=== PATIENT | female | born 1955 | race Two or more races ===

== ENCOUNTER 2020-05-05 16:32 | Inpatient (IN) | payer MEDICAID, OTHER ==
[~2020-05-05] VITALS: Ht 165.1 cm; Wt 89.5 kg
[2020-05-05] MEDS ORDERED: amLODIPine BESYLATE 5 MG TAB PO ONE (17:00)
[2020-05-05 18:31] LABS: Basophils # (auto) 0.1 10 ^3/uL (0-0.2); Basophils % (auto) 1.3 % (0.0-2.0); Eosinophils # (auto) 0.5 10 ^3/uL (0-0.8); Eosinophils % (auto) 6.6 % (0.0-7.0); Hemoglobin 15.2 g/dL (12.2-16.2); Lymphocytes # (auto) 1.4 10 ^3/uL (0.4-5.4); Lymphocytes % (auto) 17.2 % (10.0-50.0); Mean Corpuscular Hgb Conc. 33.8 g/dL (32.0-36.0); Mean Corpuscular Volume 88.6 fL (80.0-100.0); Monocytes # (auto) 0.5 10 ^3/uL (0-1.3); Monocytes % (auto) 6.5 % (0.0-12.0); Neutrophils # (auto) 5.6 10 ^3/uL (1.6-8.6); Neutrophils % (auto) 68.4 % (37.0-80.0); Nucleated Red Blood Cells % 0.1 %; Platelet Count (auto) 174 10^3/uL (140-450); Red Blood Cells 5.08 10^6/uL (4.0-5.20); Red Cell Distribution Width 13.8 % (11.8-14.3); White Blood Cell 8.1 10^3/uL (4.4-10.8)
[2020-05-05 18:55] LABS: Alanine Aminotransferase 47 U/L (13-56); Anion Gap 8 (5-15); Aspartate Aminotransferase 43 U/L (15-37); BUN/Creatinine Ratio 19.7; Blood Urea Nitrogen 15 mg/dL (7-18); Calcium 8.5 mg/dL (8.5-10.1); Carbon Dioxide 25 mmol/L (21-32); Chloride 105 mmol/L (98-107); GFR African American 99 mL/min; GFR Non-African American 82 mL/min; Glucose 95 mg/dL (74-106); Potassium 3.6 mmol/L (3.5-5.1); Sodium 138 mmol/L (136-145)
[2020-05-05 19:00] LABS: Alkaline Phosphatase 92 U/L (45-117); Total Protein 7.5 g/dL (6.4-8.2)
[2020-05-05] MEDS ORDERED: NITROGLYCERIN 0.4 MG SL TAB SL PRN ×2 (19:30→21:45)
[2020-05-05] MEDS ORDERED: MORPHINE SULF INJ 2 MG/ML SYRINGE 1ML IV PRN ×2 (19:30→21:45)
[2020-05-05] MEDS ORDERED: MORPHINE SULFATE 4 MG/ML SYR/VIAL IV ONE (19:30)
[2020-05-05] MEDS ORDERED: ONDANSETRON HCL 4 MG/2 ML VIAL IV ONE (19:30)
[2020-05-05] MEDS ORDERED: CHOL20007 PO (19:40)
[2020-05-05] MEDS ORDERED: ASPI-498 PO (19:40)
[2020-05-05] MEDS ORDERED: CETI1TAB36 PO (19:40)
[2020-05-05] MEDS ORDERED: OYST500T29 PO (19:40)
[2020-05-05] MEDS ORDERED: ASCO500T11 PO (19:40)
[2020-05-05] MEDS ORDERED: IOHEXOL 350 MG/ML 100ML IJ ONE (20:17)
[2020-05-05] MEDS ORDERED: DOCUSATE SOD 100 MG CAP PO PRN (21:45)
[2020-05-05] MEDS ORDERED: METOPROLOL SUCCINATE XL 50 MG TAB PO ONE (21:45)
[2020-05-05] MEDS ORDERED: ACETAMINOPHEN 325 MG TAB PO PRN (21:45)
[2020-05-05] MEDS ORDERED: ATORVASTATIN 20 MG TAB PO ONE (21:45)
[2020-05-05] MEDS ORDERED: LORazepam 0.5 MG TAB PO PRN (21:45)
[2020-05-05] MEDS ORDERED: ALUM & MAG HYDROX-SIMETH LIQ(MAALOX) 30 ML PO PRN (21:45)
[2020-05-05] MEDS: FAMOTIDINE 20 MG TAB PO SCH (22:52)
[2020-05-05] MEDS: ATORVASTATIN 20 MG TAB PO SCH (22:52)
[2020-05-05] MEDS: DOXYCYCLINE 100MG/250ML 250 ML IV SCH (23:29)
[2020-05-05] MEDS: ENOXAPARIN SOD 40 MG/0.4 ML SYRINGE SC SCH (23:30)
[2020-05-05] MEDS: MORPHINE SULF INJ 2 MG/ML SYRINGE 1ML IV PRN (23:35)
[2020-05-05] MEDS: ONDANSETRON HCL 4 MG/2 ML VIAL IV PRN (23:36)
[2020-05-05 23:50] LABS: Urine Bacteria FEW /hpf (None Seen); Urine Blood Negative /uL (Negative); Urine Hyaline Cast FEW /lpf (0 - 2); Urine Specific Gravity 1.009 (1.001-1.035); Urine WBC 2 /hpf (0 - 5)
[2020-05-06 00:03] LABS: Alcohol, Urine < 3.0 mg/dL (0-10); Amphetamine Screen, Urine NEGATIVE (NEGATIVE); Barbiturate Scree,Urine NEGATIVE (NEGATIVE); Benzodiazephine Screen, Urine NEGATIVE (NEGATIVE); Cannabinoid Screen, Urine NEGATIVE (NEGATIVE); Cocaine Screen, Urine NEGATIVE (NEGATIVE); Opiate Scree,Urine NEGATIVE (NEGATIVE); Phencyclidine Screen, Urine NEGATIVE (NEGATIVE)
[2020-05-06] MEDS: HYDROcodone-ACET 5/325MG TAB PO PRN (01:08)
[2020-05-06] MEDS: MORPHINE SULF INJ 2 MG/ML SYRINGE 1ML IV PRN (05:13)
[2020-05-06] MEDS: ONDANSETRON HCL 4 MG/2 ML VIAL IV PRN (05:14)
[2020-05-06] MEDS: cloNIDine HCL 0.1 MG TAB PO PRN (05:43)
[2020-05-06] MEDS ORDERED: cloNIDine HCL 0.1 MG TAB ONE (05:48)
[2020-05-06] MEDS ORDERED: ALBUTEROL SULF HFA 90MCG INH 200DOSE IN SCH (06:00)
[2020-05-06] MEDS: FUROSEMIDE 20 MG/2 ML VIAL IV SCH ×2 (06:13→17:39)
--- NOTE | 2020-05-06 07:49 | NUR ---
Respiratory note: PT FOUND LAYING COMFORTABLY IN BED WEARING 3L O2 VIA NASAL CANNULA SATTING 95% HEART RATE 68. BREATH SOUNDS ARE CLEAR. PT IN NO RESPIRATORY DISTRESS AT THIS TIME. Addendum: 05/06/20 at 0750 by RT MIGUEL ÁNGEL RT Amended: Links added.
[2020-05-06] MEDS: CALCIUM CARB 500 MG CHEW TAB PO SCH ×3 (08:42→17:40)
[2020-05-06] MEDS: BUDESONIDE (INHALATION) 0.5 MG/2 ML NEB NEB SCH ×2 (09:05→23:30)
--- NOTE | 2020-05-06 09:07 | NUR ---
Received report from ER Nurse Yann.
[2020-05-06 09:54] VITALS: BP 142/99
[2020-05-06 09:55] VITALS: BP 150/79
[2020-05-06] MEDS ORDERED: NIFEdipine ER 30 MG TAB PO SCH ×2 (10:00)
[2020-05-06] MEDS ORDERED: METOPROLOL SUCCINATE XL 50 MG TAB PO SCH (10:00)
[2020-05-06] MEDS ORDERED: CHOLECALCIFEROL (VITD3) 2,000 UNIT CAP PO SCH (10:00)
[2020-05-06] MEDS: DOXYCYCLINE 100MG/250ML 250 ML IV SCH (10:25)
[2020-05-06] MEDS: FAMOTIDINE 20 MG TAB PO SCH ×2 (10:26→23:06)
[2020-05-06] MEDS: ASPirin-EC 81 mg tab PO SCH (10:26)
[2020-05-06] MEDS: ASCORBIC ACID 500 MG TAB PO SCH (10:28)
[2020-05-06] MEDS: ENOXAPARIN SOD 40 MG/0.4 ML SYRINGE SC SCH (10:29)
[2020-05-06] MEDS: LISINOPRIL 20 MG TAB PO SCH (10:29)
[2020-05-06 12:17] VITALS: BP 138/92
--- NOTE | 2020-05-06 13:51 | NUR ---
updated patient's daughter of POC after password was verified.
[2020-05-06] MEDS ORDERED: ALBUTEROL SULF 2.5 MG/0.5ML(0.5%) NEB SOLN NEB PRN (14:15)
[2020-05-06] MEDS ORDERED: IPRATROPIUM BROM 0.5 MG/2.5ML INH SOL NEB PRN (14:15)
[2020-05-06] MEDS ORDERED: POTASSIUM CHL 10 Meq TABLET PO ONE (14:15)
[2020-05-06 17:00] VITALS: BP 136/80
--- NOTE | 2020-05-06 19:36 | NUR ---
closing shift note Patient is comfortably resting in bed, no s/s of distress/sob noted/stated. Bed at lowest locked position and call light within reach. Care endorsed to NOC RN.
[2020-05-06 20:00] VITALS: BP 136/80
--- NOTE | 2020-05-06 21:20 | NUR ---
Received patient from [facility] [place] unit via wheelchair. Patient is alert and oriented x4. bulgarian speaking. can understand little Yemeni. No SOB and acute distress noted. Ambulatory. Denies any pain. No needs right now. Will continue to monitor patient.
--- NOTE | 2020-05-06 21:20 | NUR ---
PATIENT TRANSFERRED Care endorsed to Alana RN, patient transferred to room 206 via wheelchair without incident and accompanied by staff.
[2020-05-06 22:00] VITALS: BP 162/99
[2020-05-06] MEDS: POTASSIUM CHL 10 Meq TABLET PO SCH (23:05)
[2020-05-06] MEDS: ATORVASTATIN 20 MG TAB PO SCH (23:05)
--- NOTE | 2020-05-06 23:30 | NUR ---
Reviewed charts and orders from MD. For Cardiolite, ordered 05/06. There's no order for NPO after midnight. However, informed the patient that just in case cardiolite pushes through tomorrow she will be ready to have the test.
[2020-05-07 00:10] VITALS: BP 144/88
[2020-05-07 05:00] VITALS: BP 159/92
[2020-05-07] MEDS: FUROSEMIDE 20 MG/2 ML VIAL IV SCH ×2 (05:25→19:21)
[2020-05-07 06:05] LABS: Calcium 8.5 mg/dL (8.5-10.1); Magnesium 2.6 mg/dL (1.6-2.6); Potassium 3.8 mmol/L (3.5-5.1)
[2020-05-07 06:12] LABS: BUN/Creatinine Ratio 24.4
[2020-05-07] MEDS: CALCIUM CARB 500 MG CHEW TAB PO SCH ×3 (08:00→19:20)
[2020-05-07] MEDS ORDERED: ADENOSINE 75 MG in GIVE UN-DILUTED 0 ML IV STA (08:35)
[2020-05-07 08:37] VITALS: BP 157/95
[2020-05-07] MEDS ORDERED: METOPROLOL TARTRATE 25 MG TAB PO SCH (10:00)
[2020-05-07] MEDS: BUDESONIDE (INHALATION) 0.5 MG/2 ML NEB NEB SCH (10:55)
[2020-05-07] MEDS: ASCORBIC ACID 500 MG TAB PO SCH (11:25)
[2020-05-07] MEDS: POTASSIUM CHL 10 Meq TABLET PO SCH ×2 (11:25→21:17)
[2020-05-07] MEDS: cloNIDine HCL 0.1 MG TAB PO PRN (11:27)
[2020-05-07] MEDS: LISINOPRIL 20 MG TAB PO SCH (11:29)
[2020-05-07] MEDS: ASPirin-EC 81 mg tab PO SCH (11:42)
[2020-05-07] MEDS: FAMOTIDINE 20 MG TAB PO SCH ×2 (11:43→21:17)
[2020-05-07] MEDS: ENOXAPARIN SOD 40 MG/0.4 ML SYRINGE SC SCH (11:43)
--- NOTE | 2020-05-07 11:50 | NUR ---
Pt was unsure of her home medications, but stated her daughter kept a medical card with that information. I spoke with her daughter she said her Mother had not been on blood pressure medication for over 3 years and she only takes vitamins at home because they did not have insurance anymore. She ised to take Metoprolol 100mg PO daily, Hydralazine 25mg PO daily, and Atrovistatin 40mg PO daily.
[2020-05-07] MEDS: hydrALAZINE HCL 25 MG TAB PO SCH ×3 (12:00→23:37)
[2020-05-07 12:48] VITALS: BP 198/104
[2020-05-07 17:00] VITALS: BP 155/96
[2020-05-07 17:30] LABS: Basophils # (auto) 0.1 10 ^3/uL (0-0.2); Basophils % (auto) 0.9 % (0.0-2.0); Eosinophils # (auto) 0.5 10 ^3/uL (0-0.8); Eosinophils % (auto) 5.4 % (0.0-7.0); Hematocrit 44.3 % (36.0-46.0); Hemoglobin 15.4 g/dL (12.2-16.2); Lymphocytes # (auto) 1.2 10 ^3/uL (0.4-5.4); Mean Corpuscular Hgb Conc. 34.7 g/dL (32.0-36.0); Mean Corpuscular Volume 89.4 fL (80.0-100.0); Monocytes # (auto) 0.6 10 ^3/uL (0-1.3); Monocytes % (auto) 6.6 % (0.0-12.0); Neutrophils # (auto) 6.3 10 ^3/uL (1.6-8.6); Neutrophils % (auto) 73.1 % (37.0-80.0); Platelet Count (auto) 165 10^3/uL (140-450); Red Blood Cells 4.96 10^6/uL (4.0-5.20); White Blood Cell 8.6 10^3/uL (4.4-10.8)
[2020-05-07 17:42] LABS: Partial Thromboplastin Time 27.9 sec (23.0-31.2)
[2020-05-07 17:50] LABS: BUN/Creatinine Ratio 23.3; Calcium 8.9 mg/dL (8.5-10.1); Potassium 3.7 mmol/L (3.5-5.1)
--- NOTE | 2020-05-07 18:39 | NUR ---
RT NOTE PT WAS SEEN BY RT FOR PRN HHN TX ASSESSMENT. PT STATES NO SOB OR DISTRESS AT THIS TIME. NONE NOTED EITHER. HR 73, RR 16, BS CLEAR, POX 93% ON ROOM AIR. NO PRN TX INDICATED AT THIS TIME. PT AWARE TO CALL IF TX NEEDED. CONT ORDERED Addendum: 05/07/20 at 1852 by Justine Xiao RT Amended: Links added.
--- NOTE | 2020-05-07 19:05 | NUR ---
Opening Shift Note Assumed care of patient, awake and alertx4. No S/S of distress/SOB or pain. Instructed on POC , NPO after midnight for proocedure in AM and to call for assist PRN, will continue to monitor for changes Q1hr and PRN. Patient verbalized understanding.
[2020-05-07] MEDS: ATORVASTATIN 20 MG TAB PO SCH (21:17)
[2020-05-07 21:39] VITALS: BP 140/87
[2020-05-07] MEDS ORDERED: ATORVASTATIN 20 MG TAB PO SCH (22:00)
[2020-05-07] MEDS: METOPROLOL TARTRATE 25 MG TAB PO SCH (22:24)
[2020-05-07] MEDS: HYDROcodone-ACET 5/325MG TAB PO PRN (22:25)
--- NOTE | 2020-05-08 00:23 | NUR ---
Patient resting in bed. Denies any needs right now.
[2020-05-08 05:00] VITALS: BP 180/96
[2020-05-08] MEDS: FUROSEMIDE 20 MG/2 ML VIAL IV SCH ×2 (05:59→17:20)
[2020-05-08] MEDS: hydrALAZINE HCL 25 MG TAB PO SCH ×4 (06:00→17:21)
--- NOTE | 2020-05-08 06:20 | NUR ---
Respiratory note: PT IS AWAKE, AND ALERT. NO RESPIRATORY DISTRESS NOTED. SPO2 97% ON RA, HR 65, RR 18, BS CLEAR BILATERALLY. PRN MEDNEB TX NOT INDICATED AT THIS TIME. PT INFORMED TO PUSH CALL BUTTON IF INCREASED WOB, SOB, OR WHEEZING OCCURS. NO FURTHER RESPIRATORY INTERVENTIONS INDICATED AT THIS TIME. WILL CONTINUE TO MONITOR PT.
--- NOTE | 2020-05-08 06:57 | NUR ---
Closing shift report Patient in bed. NO sob noted. Bed in low position, non skid socks on. call light within reach. No complains.
[2020-05-08] MEDS ORDERED: LIDOCAINE 2%HCL (LOCAL ANESTH.) INJ 20ML MDV ONE ×2 (07:46→12:51)
[2020-05-08] MEDS ORDERED: IOHEXOL 350 MG/ML 100ML IJ ONE ×2 (07:46→12:51)
[2020-05-08] MEDS ORDERED: HEPARIN IN NS 1000Units/500mL 0 ML ONE (07:47)
[2020-05-08 09:00] VITALS: BP 174/80
[2020-05-08] MEDS: ENOXAPARIN SOD 40 MG/0.4 ML SYRINGE SC SCH (10:00)
[2020-05-08] MEDS ORDERED: CHOLECALCIFEROL (VITD3) 1,000UNIT=25mCg TAB PO SCH (10:00)
[2020-05-08] MEDS ORDERED: fentaNYL CITRATE 100 MCG/2 ML VL ONE (12:57)
[2020-05-08] MEDS ORDERED: ANGIOMAX 250 MG VIAL IV ONE (12:57)
[2020-05-08] MEDS ORDERED: SODIUM CHL 0.9% 0 ML ONE (12:58)
[2020-05-08] MEDS ORDERED: MIDAZOLAM HCL 1MG/1ML-2 ML VIAL ONE ×2 (12:58→13:32)
[2020-05-08 13:00] VITALS: BP 155/102
[2020-05-08] MEDS ORDERED: NITROGLYCERIN 0.4MG/DOSE SPRAY 4.9GM ONE (13:29)
--- NOTE | 2020-05-08 13:55 | NUR ---
Received pt. in [employer] [facility], drowsy but arousable and oriented to person, place and event, respirations even and unlabored. RIGHT groin is soft with dressing CDI. Pt. moves all extremities freely but keeps RIGHT leg straight as instructed; verbalized understanding of importance of keeping RIGHT leg straight and states will comply. RLE pulses to DP and PT are palpable.
[2020-05-08] MEDS: HYDROcodone-ACET 5/325MG TAB PO PRN (14:05)
--- NOTE | 2020-05-08 14:05 | NUR ---
c/o LEFT hip pain, which she states is chronic. Medicated for pain per MD order.
--- NOTE | 2020-05-08 14:12 | NUR ---
Position changed for comfort. RIGHT groin unchanged, respirations remains even and unlabored, RIGHT leg remains straight, NS lock IV intact to LEFT hand; site benign.
[2020-05-08] MEDS ORDERED: ASPI-498 PO (14:29)
[2020-05-08] MEDS ORDERED: LISI-646 PO (14:31)
[2020-05-08] MEDS ORDERED: HYDR50TA15 PO (14:31)
[2020-05-08] MEDS ORDERED: METO-5 PO (14:31)
[2020-05-08] MEDS ORDERED: ATOR20TA PO (14:31)
--- NOTE | 2020-05-08 14:35 | NUR ---
Stable for transfer back to room, SBAR report given to YASMIN gR
--- NOTE | 2020-05-08 14:45 | NUR ---
RIGHT groin remains soft with dressing CDI, pt. states LEFT hip pain is decreased slightly, transferred back to room via bed with assist by georgette Morataya pt. endorsed to YASMIN Rg.
[2020-05-08] MEDS: LISINOPRIL 20 MG TAB PO SCH (15:02)
[2020-05-08] MEDS: ASCORBIC ACID 500 MG TAB PO SCH (15:02)
[2020-05-08] MEDS: METOPROLOL TARTRATE 25 MG TAB PO SCH (15:03)
[2020-05-08] MEDS: FAMOTIDINE 20 MG TAB PO SCH (15:03)
[2020-05-08] MEDS: CALCIUM CARB 500 MG CHEW TAB PO SCH ×3 (15:04→17:21)
[2020-05-08] MEDS: POTASSIUM CHL 10 Meq TABLET PO SCH (15:04)
[2020-05-08] MEDS: ASPirin-EC 81 mg tab PO SCH (15:04)
[2020-05-08] MEDS: MORPHINE SULF INJ 2 MG/ML SYRINGE 1ML IV PRN (15:04)
[2020-05-08] MEDS ORDERED: hydrALAZINE HCL 25 MG TAB PO ONE (15:30)
[2020-05-08 16:40] VITALS: BP 155/101
[2020-05-08] MEDS ORDERED: SODIUM CHLOR 0.9% PF (SALINE LOCK) 10ML VIAL/SYR IV SCH (22:00)
== END 2020-05-08 18:00 | disposition home or self-care (01) | DRG 192 ==
LOC: ER 16:32 → TELE 16:33 → TELE-EAST 05-06 09:11 → TELE-CENTR 05-06 21:20
PROVIDERS: ADMIT Hospitalist; ATTEND Internal Medicine
PROC: 4A023N7 Measurement of Cardiac Sampling and Pressure, Left Heart, Percutaneous Approach (ICD-10-PCS; principal; 2020-05-08)
PROC: B2111ZZ Fluoroscopy of Multiple Coronary Arteries using Low Osmolar Contrast (ICD-10-PCS; 2020-05-08)
PROC: B2151ZZ Fluoroscopy of Left Heart using Low Osmolar Contrast (ICD-10-PCS; 2020-05-08)
DX: I16.0 Hypertensive urgency (principal); I21.A1 Myocardial infarction type 2; I50.33 Acute on chronic diastolic (congestive) heart failure; E78.5 Hyperlipidemia, unspecified; E66.01 Morbid (severe) obesity due to excess calories; K21.9 Gastro-esophageal reflux disease without esophagitis; M19.90 Unspecified osteoarthritis, unspecified site; R06.03 Acute respiratory distress; J45.909 Unspecified asthma, uncomplicated; I11.0 Hypertensive heart disease with heart failure; Z20.828 Contact with and (suspected) exposure to other viral communicable diseases; E87.6 Hypokalemia; Z68.33 Body mass index [BMI] 33.0-33.9, adult; Z90.49 Acquired absence of other specified parts of digestive tract; Z91.14 Patient's other noncompliance with medication regimen
CPT/HCPCS: 36415; 70450; 71045; 71275; 78452; 80048; 80053; 80061; 80307; 81001; 83036; 83735; 83880; 84443; 84484; 85025; 85610; 85730; 87040; 87086; 87426; 93005; 93017; 93306; 93458; 94640; 96365; 96372; 99152; 99153; G0378; J0153; J2250; J2405; J3490